=== PATIENT | male | born 1985 | race Two or more races ===

== ENCOUNTER 2020-04-11 12:08 | Emergency (ER) | payer OTHER ==
[~2020-04-11] VITALS: Ht 177.8 cm; Wt 81.6 kg
[2020-04-11 12:09] VITALS: BP 128/79
--- NOTE | 2020-04-11 12:35 | Emergency Room Report ---
History of Present Illness General Chief Complaint: Palpitations Source: Patient Present Illness HPI Patient presents with complaints of a palpitation sensation that he experienced just prior to arrival while driving Patient had a sensation of shortness of breath during that episode pulled over and presents to the ER for further evaluation Denies any continuation of symptoms and reports that is fully resolved denies any chest pain with this denies any pleurisy Denies any headache Denies any vomiting or diarrhea denies any recent trauma Denies any recent medications Patient denies having this sometime in the past He reports that he does see his primary physician annually and does get blood work has not been told regarding any abnormalities Allergies: Coded Allergies: No Known Allergies (Unverified , 04/11/20) COVID-19 Screening Contact w/high risk pt: No Recent Travel to affected area: No Experienced COVID-19 symptoms?: No COVID-19 Testing 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 Patient History Past Medical History: see triage record Reviewed Nursing Documentation: PMH: Agreed; PSxH: Agreed Nursing Documentation-PMH Past Medical History: No Stated History Review of Systems All Other Systems: negative except mentioned in HPI Physical Exam Vital Signs Date Time Temp Pulse Resp B/P (MAP) Pulse Ox O2 Delivery O2 Flow Rate FiO2 04/11/20 12:09 98.1 60 16 128/79 (95) 98 Room Air Sp02 EP Interpretation: reviewed, normal General Appearance: well appearing, no apparent distress Head: normocephalic, atraumatic Eyes: bilateral eye PERRL, bilateral eye EOMI ENT: hearing grossly normal, normal pharynx, TMs + canals normal, uvula midline Neck: full range of motion, supple, no meningismus, no bony tend Respiratory: lungs clear, normal breath sounds, no rhonchi, no respiratory distress, no retraction, no accessory muscle use Cardiovascular #1: normal peripheral pulses, regular rate, rhythm, no edema, no gallop, no JVD, no murmur Gastrointestinal: normal bowel sounds, non tender, soft, no mass, no organomegaly, non-distended, no guarding, no hernia, no pulsatile mass, no rebound Genitourinary: no CVA tenderness Musculoskeletal: normal inspection Neurologic: motor strength/tone normal, sales and support center agent III-XII nml as tested, oriented x3 , sensory intact, responsive Psychiatric: mood/affect normal Skin: no rash Lymphatic: normal inspection, no adenopathy Medical Decision Making Diagnostic Impression: Primary Impression: Palpitations ER Course Patient is a fairly complex patient with multiple differential to consideration including but not limited to cardiac cardiopulmonary and vascular emergencies Upon evaluation patient is asymptomatic Has a benign medical evaluation EKG is normal Patient denies any recent increased caffeine intake or other abnormalities Given the overall medical evaluation and the patient's presentation here Further blood work has not been performed Patient again at baseline levels and is dispositioned with copy of EKG for close outpatient follow-up EKG Diagnostic Results Rate: normal Rhythm: NSR ST Segments: no acute changes Rhythm Strip Diag. Results EP Interpretation: yes Rate: 60 Rhythm: NSR, no PVC's, no ectopy Last Vital Signs Date Time Temp Pulse Resp B/P (MAP) Pulse Ox O2 Delivery O2 Flow Rate FiO2 04/11/20 12:09 98.1 60 16 128/79 (95) 98 Room Air Status: improved Disposition: HOME, SELF-CARE Condition: Improved Additional Instructions: Patient is provided with the discharge instructions notified to follow up with primary doctor in the next 2-3 days otherwise return to the er with any worsening symptoms. Please note that this report is being documented using [employer] technology. This can lead to erroneous entry secondary to incorrect interpretation by the dictating instrument. Chon Saravia DO Apr 11, 2020 12:35
[2020-04-11 12:40] VITALS: BP 128/79
== END 2020-04-11 12:40 | disposition home or self-care (01) ==
LOC: EMR 12:36
DX: R00.2 Palpitations (principal)
CPT/HCPCS: 99283